=== PATIENT | female | born 1990 | race African-American/Black ===

== ENCOUNTER 2017-05-29 15:52 | Emergency (ER) ==
[2017-05-29 15:55] VITALS: BP 111/77; TEMP 98.7; BMI 36.6
--- NOTE | 2017-05-29 16:01 | ED.PDOC ---
General ED Provider: Dr. RAFAEL CARTWRIGHT JR Chief Complaint: Respiratory Complaint Stated Complaint: cough green-yellow phlegm sore throat nasal drainage same color[End]2 weeks 98.7 87 16 98% 111/77 11/20 Time Seen by Physician: 16:00 Mode of Arrival: Walk-In Information Source: Patient Exam Limitations: No limitations Primary Care Provider: TRIXIE SETHI Nursing and Triage Documentation Reviewed and Agree: No Review of Systems - Review Of Systems Constitutional: Reports: Malaise, Weakness Eyes: Reports: No symptoms Ears, Nose, Mouth, Throat: Reports: Ear pain, Nose discharge, Throat pain Respiratory: Reports: Cough Cardiac: Reports: No symptoms GI: Reports: No symptoms : Reports: No symptoms Musculoskeletal: Reports: No symptoms Skin: Reports: No symptoms Neurological: Reports: No symptoms Endocrine: Reports: No symptoms Hematologic/Lymphatic: Reports: No symptoms All Other Systems: Other Past Medical History - Past Medical History Endocrine: Reports: None Cardiovascular: Reports: None Respiratory: Reports: None Hematological: Reports: None Gastrointestinal: Reports: None Genitourinary: Reports: None Neuro/Psych: Reports: None Musculoskeletal: Reports: None Cancer: Reports: None Last Menstrual Period: 3 months Other Pertinent Past Medical History: not sexually active - Surgical History General Surgical History: Reports: None - Family History Family History: Reports: Unknown - Social History Smoking Status: Former smoker Hx Substance Use: No Alcohol Screening: None Physical Exam - Physical Exam Appearance: Ill-appearing Ill-appearing: Mild Pain Distress: Mild Eyes: ASHA, EOMI, Conjunctiva clear ENT: Ears normal, Nose normal, Oropharynx normal Neck: Supple Respiratory: Airway patent, Crackles (EMILY posterior) Cardiovascular: RRR, Pulses normal, No rub, No murmur GI/: Soft, Nontender, No masses, Bowel sounds normal, No Organomegaly Musculoskeletal: Normal strength, ROM intact, No edema, No calf tenderness Skin: Warm, Dry, Normal color Neurological: Sensation intact, Motor intact, Reflexes intact, Cranial nerves intact, Alert, Oriented Psychiatric: Affect appropriate, Mood appropriate Critical Care Note - Critical Care Note Total Time (mins): 0 Course - Course Vital Signs: Temp Pulse Resp BP Pulse Ox 05/29/17 15:52 98.7 F 87 16 111/77 98 Departure - Departure Time of Disposition: 16:01 Disposition: HOME SELF-CARE Discharge Problem: Pneumonia affecting in second trimester Instructions: Pneumonia (ED), (ED) Condition: Good Pt referred to PMD for follow-up: Yes Additional Instructions: antibiotic until gone return if fever over 102 tylenol for discomfort plain robitussin for cough Prescriptions: Amoxicillin/Potassium Clav [Augmentin 875-125 mg Tab] 1 tab PO BIDWM #14 tablet Azithromycin [Zithromax] 250 mg PO DIRECTED #6 tablet Allergies/Adverse Reactions: Allergies No Known Allergies Allergy (Verified 05/29/17 15:55) Home Medications: Ambulatory Orders Amoxicillin/Potassium Clav [Augmentin 875-125 mg Tab] 1 tab PO BIDWM #14 tablet 05/29/17 Azithromycin [Zithromax] 250 mg PO DIRECTED #6 tablet 05/29/17 No122/Iron/Folic Acid [ Multi Tablet] 1 each PO DAILY 05/29/17
== END 2017-05-29 16:15 | disposition home or self-care (01) ==
LOC: ED 15:52
DX: J18.9 Pneumonia, unspecified organism (principal); O99.512 Diseases of the respiratory system complicating pregnancy, second trimester
CPT/HCPCS: 99282